=== PATIENT | male | born 1930 | race Caucasian/White ===

== ENCOUNTER → 2019-02-07 | Outpatient (CLI) | payer MEDICARE ==
[2019-02-07 06:34] LABS: PROTHROMBIN TIME PATIENT 17.1 SEC (11.7-14.0)
== END ==
LOC: SPEC 00:44 → EDSTATUS 15:26
PROVIDERS: ATTEND Family Medicine
DX: Z86.718 Personal history of other venous thrombosis and embolism (principal)
CPT/HCPCS: 36415; 85610